=== PATIENT | male | born 1955 | race Caucasian/White ===

== ENCOUNTER → 2024-03-06 | Outpatient (CLI) | payer OTHER, MEDICARE ==
[~2024-03-06] MED LIST: B-122500 PO; BLACK SEED OIL; CO Q10CA PO; ECOT81TA5 PO; HYDR-3490 PO; LISI40TA4 PO; MELO15TA28 PO; METO50TA7 PO; PROA1AER2 INH; ROSU40TA63 PO; SYMB16INH INH; VITA100065 PO; ZINC220CA PO; [UNRECOGNIZED DRUG - OTHER] PO
== END ==
LOC: M ONCR 08:23
PROVIDERS: ATTEND General Practice
DX: C61 Malignant neoplasm of prostate (principal); Z79.818 Long term (current) use of other agents affecting estrogen receptors and estrogen levels; F17.220 Nicotine dependence, chewing tobacco, uncomplicated; Z71.2 Person consulting for explanation of examination or test findings; Z72.89 Other problems related to lifestyle; Z77.111 Contact with and (suspected) exposure to water pollution; Z79.1 Long term (current) use of non-steroidal anti-inflammatories (NSAID); Z79.51 Long term (current) use of inhaled steroids; Z79.899 Other long term (current) drug therapy; Z80.3 Family history of malignant neoplasm of breast; Z80.8 Family history of malignant neoplasm of other organs or systems

== ENCOUNTER 2024-03-20 10:06 | Outpatient (RCR) | payer OTHER, MEDICARE | END 2024-04-04 | LOC: M ONCR 10:06 | PROVIDERS: ATTEND General Practice | DX: Z51.0 Encounter for antineoplastic radiation therapy (principal); C61 Malignant neoplasm of prostate ==

== ENCOUNTER 2024-05-02 09:08 | Outpatient (RCR) | payer MEDICARE, OTHER | END 2024-05-04 | LOC: M ONCR 09:08 | PROVIDERS: ATTEND General Practice | DX: Z51.0 Encounter for antineoplastic radiation therapy (principal); C61 Malignant neoplasm of prostate ==

== ENCOUNTER 2024-05-22 08:51 | Outpatient (RCR) | payer OTHER | END 2024-06-04 | LOC: M ONCR 08:51 | PROVIDERS: ATTEND General Practice | DX: Z51.0 Encounter for antineoplastic radiation therapy (principal); C61 Malignant neoplasm of prostate ==

== ENCOUNTER → 2024-08-14 | Outpatient (CLI) | payer MEDICARE, OTHER ==
[~2024-08-14] MED LIST changes: -ROSU40TA63 PO; +ROSU40TA81 PO
== END ==
LOC: M LAB 09:20
PROVIDERS: ATTEND Urology
DX: C61 Malignant neoplasm of prostate (principal)

== ENCOUNTER → 2024-08-22 | Outpatient (CLI) | payer MEDICARE, OTHER | LOC: M ONCR 10:05 → MERGE 10:05 | PROVIDERS: ATTEND General Practice | DX: C61 Malignant neoplasm of prostate (principal); Z72.0 Tobacco use; Z92.3 Personal history of irradiation ==

== ENCOUNTER → 2025-02-20 | Outpatient (CLI) | payer MEDICARE, OTHER | LOC: M ONCR 09:26 | PROVIDERS: ATTEND General Practice | DX: C61 Malignant neoplasm of prostate (principal); Z92.23 Personal history of estrogen therapy; F17.220 Nicotine dependence, chewing tobacco, uncomplicated; Z72.89 Other problems related to lifestyle; Z79.51 Long term (current) use of inhaled steroids; Z79.82 Long term (current) use of aspirin; Z79.1 Long term (current) use of non-steroidal anti-inflammatories (NSAID); Z79.899 Other long term (current) drug therapy ==

== ENCOUNTER → 2025-07-15 | Outpatient (CLI) | payer OTHER, MEDICARE ==
[~2025-07-15] MED LIST changes: +LISI40TA10 PO; -LISI40TA4 PO
== END ==
LOC: M LAB 12:06
PROVIDERS: ATTEND General Practice
DX: C61 Malignant neoplasm of prostate (principal)

== ENCOUNTER → 2025-08-21 | Outpatient (CLI) | payer OTHER, MEDICARE | LOC: M ONCR 09:07 | PROVIDERS: ATTEND General Practice | DX: C61 Malignant neoplasm of prostate (principal); M62.81 Muscle weakness (generalized); F17.220 Nicotine dependence, chewing tobacco, uncomplicated; Z92.3 Personal history of irradiation; Z72.89 Other problems related to lifestyle; Z79.1 Long term (current) use of non-steroidal anti-inflammatories (NSAID); Z79.51 Long term (current) use of inhaled steroids; Z79.82 Long term (current) use of aspirin; Z79.899 Other long term (current) drug therapy | CPT/HCPCS: 36415; 84403; G0463 ==